=== PATIENT | female | born 1990 | race Caucasian/White ===

== ENCOUNTER → 2022-11-14 | Outpatient (CLI) | payer OTHER ==
[2022-11-14 16:16] LABS: BASO % 0.1 % (0.0-1.0); EOS # 0.2 10^3/uL (0.0-0.5); EOS % 3.3 % (0.0-3.0); HEMATOCRIT 40.8 % (36.0-47.0); HEMOGLOBIN 12.8 g/dl (12.0-15.5); LYMPH # 2.8 10^3/uL (1.5-5.0); LYMPH % 38.9 % (24.0-44.0); MEAN CORPUSCULAR HEMOGLOBIN 28.4 pg (27.0-33.0); MEAN CORPUSCULAR HGB CONC 31.4 g/dl (32.0-36.5); MEAN CORPUSCULAR VOLUME 90.5 fl (80.0-96.0); MONO # 0.4 10^3/uL (0.0-0.8); MONO % 5.5 % (2.0-8.0); NEUTROPHILS # 3.7 10^3/uL (1.5-8.5); NEUTROPHILS % 51.9 % (36.0-66.0); PLATELET COUNT, AUTOMATED 243 10^3/uL (150-450); RED BLOOD COUNT 4.51 10^6/uL (4.00-5.40); WHITE BLOOD COUNT 7.1 10^3/uL (4.0-10.0)
[2022-11-14 16:44] LABS: ALKALINE PHOSPHATASE 58 U/L (46-116); ALT/SGPT 23 U/L (7.0-40); AST/SGOT 19 U/L (<34); BILIRUBIN,TOTAL 0.6 MG/DL (0.3-1.2); BLOOD UREA NITROGEN 15 MG/DL (9-23); CALCIUM LEVEL 9.2 MG/DL (8.5-10.1); CARBON DIOXIDE LEVEL 27 MMOL/L (20-31); CHLORIDE LEVEL 106 MMOL/L (98-107); FREE T4 0.98 NG/DL (0.89-1.76); GLOMERULAR FILTRATION RATE > 60.0 (>60); GLUCOSE, FASTING 87 MG/DL (60-100); POTASSIUM SERUM 4.9 MMOL/L (3.5-5.1); SODIUM LEVEL 139 MMOL/L (136-145); THYROID STIMULATING HORMONE 0.687 uIU/ML (0.55-4.78); TOTAL PROTEIN 6.9 G/DL (5.7-8.2)
== END ==
LOC: M WUC 13:25
PROVIDERS: ATTEND Student in an Organized Health Care Education/Training Program
DX: Z00.00 Encounter for general adult medical examination without abnormal findings (principal); F41.9 Anxiety disorder, unspecified

== ENCOUNTER → 2023-01-18 | Outpatient (REF) | payer OTHER | LOC: M SFHCWAGY 17:01 | PROVIDERS: ATTEND Surgery | DX: N61.1 Abscess of the breast and nipple (principal) ==

== ENCOUNTER → 2023-01-18 | Outpatient (CLI) | payer OTHER ==
[~2023-01-18] MED LIST: AUGM500T34 PO; BACT800T5 PO; BACTDSTA PO; BUSP10TA PO; ONDA4TAB6 PO; PANT20TA6 PO; SERT50TA29 PO; TRAM50TA2 PO
== END ==
LOC: M WHC 08:31
PROVIDERS: ATTEND Student in an Organized Health Care Education/Training Program
DX: N61.1 Abscess of the breast and nipple (principal)
CPT/HCPCS: 10060; 76642; 77066; G0279; G0463

== ENCOUNTER 2023-01-30 09:02 | Observation (INO) | payer OTHER ==
[~2023-01-30] VITALS: Ht 157.5 cm; Wt 63.1 kg
[~2023-01-30 09:02] MED LIST changes: -AUGM500T34 PO; -BACT800T5 PO; -BACTDSTA PO; -BUSP10TA PO; -ONDA4TAB6 PO; -PANT20TA6 PO; +PIPERACILLIN/TAZOBACTAM SOD 3.375 GM in D5W MINI-BAG PLUS 50 ML IV SCH; -SERT50TA29 PO; -TRAM50TA2 PO
[2023-01-30] MEDS ORDERED: PIPERACILLIN/TAZOBACTAM SOD 3.375 GM in D5W MINI-BAG PLUS 50 ML IV ONE (18:30)
[2023-01-30] MEDS ORDERED: VANCOMYCIN HCL 1,000 MG, VIAL MATE ADAPTER 1 EACH in D5W 250 ML IV ONE (18:30)
[2023-01-30] MEDS ORDERED: LIDOCAINE 1% SDV 30ML VIAL As Ordered ONE (19:30)
[2023-01-30] MEDS ORDERED: fentaNYL 100 MCG/2 ML INJECTION As Ordered ONE (19:51)
[2023-01-30] MEDS ORDERED: MIDAZOLAM INJ 2MG/2ML VIAL As Ordered ONE (19:51)
[2023-01-30] MEDS ORDERED: propofoL 200 MG/20 ML VIAL As Ordered ONE (19:51)
[2023-01-30] MEDS ORDERED: dexmedeTOMIDine (4MCG/ML)200MCG/50ML BTL (PRECEDEX) As Ordered ONE (19:51)
[2023-01-30] MEDS ORDERED: oxyCODONE 5MG TAB PO PRN (20:05)
[2023-01-30] MEDS ORDERED: ONDANSETRON 4MG 2ML VIAL IV PRN (20:05)
[2023-01-30] MEDS ORDERED: fentaNYL 100 MCG/2 ML INJECTION IV PRN (20:05)
[2023-01-30] MEDS: HYDROMORPHONE HCL 0.5 MG/ 0.5 ML SYRINGE IV PRN ×4 (20:19→20:36)
[2023-01-30 21:10] VITALS: BP 96/66; TEMP 98.6; O2SAT 98
[2023-01-30] MEDS: LR 1,000 ML IV SCH (21:37)
[2023-01-30 21:40] VITALS: BP 99/55; TEMP 97.9; O2SAT 96
[2023-01-30 22:10] VITALS: BP 90/55; TEMP 97.6; O2SAT 96
[2023-01-30 23:10] VITALS: BP 95/50; TEMP 97.8; O2SAT 96
[2023-01-30] MEDS: MORPHINE 2 MG/ML 1ML VIAL IV PRN (23:40)
[2023-01-31] VITALS (10 sets, daily range): BP systolic 82–107; BP diastolic 45–58; TEMP 97.6–98.6; O2SAT 94–99
[2023-01-31] MEDS ORDERED: MORPHINE 2 MG/ML 1ML VIAL IV ONE (01:00)
[2023-01-31] MEDS: VANCOMYCIN HCL 1,000 MG, VIAL MATE ADAPTER 1 EACH in D5W 250 ML IV SCH ×2 (01:03→08:58)
[2023-01-31] MEDS ORDERED: SERT50TA29 PO (01:32)
[2023-01-31] MEDS ORDERED: BUSP10TA PO (01:32)
[2023-01-31] MEDS ORDERED: BACTDSTA PO (01:32)
[2023-01-31] MEDS ORDERED: PANT20TA6 PO (01:32)
[2023-01-31] MEDS ORDERED: HOME MED LIST COMPLETE! XX SCH (01:35)
[2023-01-31] MEDS: PIPERACILLIN/TAZOBACTAM SOD 3.375 GM in D5W MINI-BAG PLUS 50 ML IV SCH ×3 (02:36→13:03)
[2023-01-31] MEDS: ACETAMINOPHEN TAB 650MG DOSE (2X325MG) PO PRN ×2 (03:18→08:57)
[2023-01-31] MEDS: traMADol 50 MG TAB PO PRN ×2 (03:18→08:58)
[2023-01-31] MEDS: LR 1,000 ML IV SCH (06:18)
[2023-01-31] MEDS: ONDANSETRON 4MG 2ML VIAL IV PRN ×2 (07:05→12:42)
[2023-01-31] MEDS: MORPHINE 2 MG/ML 1ML VIAL IV PRN (07:06)
[2023-01-31 07:21] LABS: HEMATOCRIT 31.7 % (36.0-47.0); HEMOGLOBIN 10.3 g/dl (12.0-15.5); MEAN CORPUSCULAR HEMOGLOBIN 29.4 pg (27.0-33.0); MEAN CORPUSCULAR HGB CONC 32.5 g/dl (32.0-36.5); MEAN CORPUSCULAR VOLUME 90.6 fl (80.0-96.0); PLATELET COUNT, AUTOMATED 201 10^3/uL (150-450); WHITE BLOOD COUNT 4.4 10^3/uL (4.0-10.0)
[2023-01-31 07:50] LABS: BLOOD UREA NITROGEN 8 MG/DL (9-23); CALCIUM LEVEL 7.6 MG/DL (8.5-10.1); CARBON DIOXIDE LEVEL 25 MMOL/L (20-31); CHLORIDE LEVEL 108 MMOL/L (98-107); CREATININE FOR GFR 0.74 MG/DL (0.55-1.30); GLOMERULAR FILTRATION RATE > 60.0 (>60); GLUCOSE, FASTING 69 MG/DL (60-100); POTASSIUM SERUM 4.1 MMOL/L (3.5-5.1); SODIUM LEVEL 141 MMOL/L (136-145)
[2023-01-31] MEDS ORDERED: BACT800T5 PO (13:08)
[2023-01-31] MEDS ORDERED: AUGM500T34 PO (13:08)
[2023-01-31] MEDS ORDERED: TRAM50TA2 PO (13:08)
[2023-01-31] MEDS ORDERED: ONDA4TAB6 PO (13:08)
== END 2023-01-31 14:26 | disposition home or self-care (01) ==
LOC: M SDC 09:02 → M PED 20:18
PROVIDERS: ADMIT Surgery; ATTEND Surgery
DX: N61.1 Abscess of the breast and nipple (principal)
CPT/HCPCS: 19020; 36415; 80048; 81025; 85027; 87070; 87075; 87186; 87205; 96361; 96365; 96366; 96367; 96375; 96376; J1170; J2250; J2405; J2543; J3010; S0020

== ENCOUNTER → 2023-02-21 | Outpatient (CLI) | payer OTHER ==
[~2023-02-21] MED LIST changes: +AUGM500T34 PO; +BACT800T5 PO; +BACTDSTA PO; +BUSP10TA PO; +ONDA4TAB6 PO; +PANT20TA6 PO; -PIPERACILLIN/TAZOBACTAM SOD 3.375 GM in D5W MINI-BAG PLUS 50 ML IV SCH; +SERT50TA29 PO; +TRAM50TA2 PO
== END ==
LOC: M PLALAB 14:08 → M PLAIMG 14:08
PROVIDERS: ATTEND Student in an Organized Health Care Education/Training Program
DX: M54.50 Low back pain, unspecified (principal)

== ENCOUNTER → 2023-05-15 | Outpatient (CLI) | payer OTHER | LOC: M WHC 08:01 | PROVIDERS: ATTEND Surgery | DX: N61.1 Abscess of the breast and nipple (principal) ==

== ENCOUNTER 2023-10-07 14:22 | Emergency (ER) | payer OTHER ==
[~2023-10-07] VITALS: Ht 157.5 cm; Wt 68.8 kg
[2023-10-07 14:23] VITALS: BP 122/71; TEMP 98.2; O2SAT 99
[2023-10-07] MEDS ORDERED: PRED20TA PO (14:28)
[2023-10-07] MEDS ORDERED: AUGMENTIN 875 MG TAB PO ONE (15:05)
[2023-10-07] MEDS ORDERED: IBUP-1022 PO (15:10)
[2023-10-07] MEDS ORDERED: AMOX875T2 PO (15:10)
== END 2023-10-07 15:17 | disposition home or self-care (01) ==
LOC: M ED 14:22
DX: K02.9 Dental caries, unspecified (principal); K08.89 Other specified disorders of teeth and supporting structures; Z79.2 Long term (current) use of antibiotics; Z79.52 Long term (current) use of systemic steroids; Z79.899 Other long term (current) drug therapy

== ENCOUNTER → 2024-01-21 | Outpatient (CLI) | payer OTHER ==
[~2024-01-21] MED LIST changes: +AMOX875T2 PO; +IBUP-1022 PO; +PRED20TA PO
== END ==
LOC: M WUC 10:20
PROVIDERS: ATTEND Physician Assistant
DX: M79.671 Pain in right foot (principal)

== ENCOUNTER → 2024-01-22 | Outpatient (CLI) | payer OTHER ==
[2024-01-22 13:44] LABS: APPEARANCE, URINE CLEAR (CLEAR); BACTERIA, URINE AUTO NEGATIVE (NEGATIVE); BILIRUBIN, URINE AUTO NEGATIVE (NEGATIVE); BLOOD, URINE BLOOD NEGATIVE (NEGATIVE); COLOR, URINE YELLOW (YELLOW); GLUCOSE, URINE (UA) AUTO NEGATIVE (NEGATIVE); KETONE, URINE AUTO NEGATIVE (NEGATIVE); LEUKOCYTE ESTERASE, URINE AUTO NEGATIVE (NEGATIVE); NITRITE, URINE AUTO NEGATIVE (NEGATIVE); PROTEIN, URINE AUTO NEGATIVE (NEGATIVE); RBC, URINE AUTO 0 /HPF (0-3); SQUAMOUS EPITHELIAL CELL UR AU 2 /HPF (0-6); UROBILINOGEN, URINE AUTO 0.2 mg/dL (0.0-2.0); WBC, URINE AUTO 0 /HPF (0-3)
[2024-01-22 13:49] LABS: BASO % 0.2 % (0.0-1.0); EOS # 0.2 10^3/uL (0.0-0.5); EOS % 4.5 % (0.0-3.0); HEMATOCRIT 38.2 % (36.0-47.0); HEMOGLOBIN 12.5 g/dl (12.0-15.5); LYMPH # 2.6 10^3/uL (1.5-5.0); LYMPH % 47.9 % (24.0-44.0); MEAN CORPUSCULAR HEMOGLOBIN 29.9 pg (27.0-33.0); MEAN CORPUSCULAR HGB CONC 32.7 g/dl (32.0-36.5); MEAN CORPUSCULAR VOLUME 91.4 fl (80.0-96.0); MONO # 0.4 10^3/uL (0.0-0.8); MONO % 7.5 % (2.0-8.0); NEUTROPHILS # 2.1 10^3/uL (1.5-8.5); NEUTROPHILS % 39.7 % (36.0-66.0); PLATELET COUNT, AUTOMATED 218 10^3/uL (150-450); RED BLOOD COUNT 4.18 10^6/uL (4.00-5.40); WHITE BLOOD COUNT 5.3 10^3/uL (4.0-10.0)
[2024-01-22 14:20] LABS: ALBUMIN 3.7 G/DL (3.2-5.2); ALKALINE PHOSPHATASE 52 U/L (46-116); ALT/SGPT 13 U/L (7.0-40); AST/SGOT 15 U/L (<34); BILIRUBIN,TOTAL 0.7 MG/DL (0.3-1.2); BLOOD UREA NITROGEN 8 MG/DL (9-23); CALCIUM LEVEL 8.3 MG/DL (8.5-10.1); CARBON DIOXIDE LEVEL 28 MMOL/L (20-31); CHLORIDE LEVEL 107 MMOL/L (98-107); CHOLESTEROL LEVEL 119 MG/DL (<200); CREATININE FOR GFR 0.65 MG/DL (0.55-1.30); FOLATE 18.1 NG/ML (>5.4); GLOMERULAR FILTRATION RATE > 60.0 (>60); GLUCOSE, FASTING 80 MG/DL (60-100); HDL CHOLESTEROL 49.4 MG/DL (>40); LDL CHOLESTEROL 59.6 MG/DL (<100); NON-HDL-C 69.6 MG/DL; SODIUM LEVEL 142 MMOL/L (136-145); THYROID STIMULATING HORMONE 0.726 uIU/ML (0.55-4.78); TOTAL PROTEIN 6.4 G/DL (5.7-8.2); TRIGLYCERIDES LEVEL 50 MG/DL (<150); VITAMIN B12 LEVEL 632 PG/ML (211-911)
== END ==
LOC: M WUC 11:06
PROVIDERS: ATTEND Physician Assistant
DX: R42 Dizziness and giddiness (principal); F41.9 Anxiety disorder, unspecified; R51.9 Headache, unspecified; Z13.6 Encounter for screening for cardiovascular disorders; R41.840 Attention and concentration deficit